=== PATIENT | male | born 1975 | race Caucasian/White ===

== ENCOUNTER 2016-07-10 08:41 | Emergency (ER) | payer OTHER ==
[2016-07-10] MEDS ORDERED: TORAdol 30 mg Injection IM ONE (09:12)
[2016-07-10] MEDS ORDERED: Vistaril 50 MG/ML IM ONE ×2 (09:13→09:17)
[2016-07-10] MEDS ORDERED: TORAdol 30 mg Injection ONE (09:16)
--- NOTE | 2016-07-10 09:18 | ERPHSYRPT ---
- History of Present Illness Time Seen by Provider: 07/10/16 09:04 Source: patient Patient Subjective Stated Complaint: pt states that he has recently been taken of his pain medication due to insurance change for his chronic back pain. scheduled to see pain clinic next month. pt is in pain lower back. has not been sleeping well. able to ambutlate intot the er with no assitance. states that his left leg is going numb as well. Triage Nursing Assessment: alert and oriented. pink warm and dry. afebrile. able to ambulate. stong pedal pulses. full rom in bilat legs. scar on lower back from 2016 back surgery. no obvious injuries. numbness that is described as tingling in leg leg with full sensation and states this is nothing new and sees and neurologist for this. Physician History: CC: back pain hx: 40 y/o patient has hx of chronic back pain s/p surgery. He was seeing Dr Coreas but medicaid changed to Dr Yong Munoz. He has been out of percocet for a few weeks. Dr Munoz gave him flexeril but it has not helped him sleep. He has chronic numbness in the left hand and left leg. No fever. No hx of CA. No urinary complaints. No fall or injury. He is scheduled to see pain specialist thru Dr Munoz and to see Dr Rai thru Dr Agarwal. Back Pain Location: lumbar spine Severity of Pain-Max: severe Severity of Pain-Current: severe Allergies/Adverse Reactions: phenobarbital Allergy (Verified 07/10/16 09:02) states hes had seizures Home Medications: Amphet Asp/Amphet/D-Amphet [Adderall 30 mg Tablet] 30 mg PO DAILY 07/10/16 [ History] Cyclobenzaprine HCl [Flexeril] 5 mg PO BID 07/10/16 [History] Oxycodone HCl/Acetaminophen [Percocet 7.5-325 mg Tablet] 1 each PO BID 07/10/16 [History] Hx Tetanus, Diphtheria Vaccination/Date Given: Yes Hx Influenza Vaccination/Date Given: Yes Hx Pneumococcal Vaccination/Date Given: No Immunizations Up to Date: Yes - Review of Systems Constitutional: No Fever, No Chills Eyes: No Symptoms Ears, Nose, & Throat: No Symptoms Respiratory: No Cough, No Dyspnea Cardiac: No Chest Pain Abdominal/Gastrointestinal: No Abdominal Pain Genitourinary Symptoms: No Dysuria, No Incontinence Musculoskeletal: Back Pain Skin: No Rash Neurological: No Headache All Other Systems: Reviewed and Negative - Past Medical History Pertinent Past Medical History: Yes Neurological History: No Pertinent History ENT History: No Pertinent History Cardiac History: No Pertinent History Respiratory History: No Pertinent History Endocrine Medical History: No Pertinent History Musculoskeletal History: No Pertinent History GI Medical History: No Pertinent History History: No Pertinent History Psycho-Social History: Anxiety, Depression Male Reproductive Disorders: No Pertinent History Other Medical History: chronic back pain - Past Surgical History Past Surgical History: Yes Neuro Surgical History: No Pertinent History Cardiac: No Pertinent History Respiratory: No Pertinent History Gastrointestinal: No Pertinent History Musculoskeletal: Orthopedic Surgery Male Surgical History: No Pertinent History Other Surgical History: skin grafts, right ankle, lower back - Social History Smoking Status: Light tobacco smoker How long have you smoked: 1O YEARS Exposure to second hand smoke: No Drug Use: none Patient Lives Alone: No - Nursing Vital Signs Temperature: 97.7 F Temperature Source: Oral Pulse Rate: 78 Respiratory Rate: 16 Pain Intensity: 9 - Physical Exam General Appearance: alert Eye Exam: PERRL/EOMI Ears, Nose, Throat Exam: normal ENT inspection, moist mucous membranes Neck Exam: normal inspection, non-tender, supple Respiratory Exam: normal breath sounds, lungs clear Cardiovascular Exam: regular rate/rhythm Gastrointestinal Exam: soft, No tenderness, No distention, No mass, No guarding Extremity Exam: normal range of motion, hunter (healed scars leg) Neurologic Exam: alert, oriented x 3, cooperative, 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 Already scheduled to see pain specialist and PMR. Advised ER can not refill percocet or opioids. INSPECT reviewed. Will Rx motrin and vistaril. Advised stop flexeril. Counseled pt/family regarding: diagnosis, need for follow-up, rad results - Departure Time of Disposition: 09:17 Departure Disposition: Home Clinical Impression: Chronic back pain Qualifiers: Back pain location: low back pain Back pain laterality: bilateral Sciatica presence: with sciatica Sciatica laterality: sciatica of left side Qualified Code(s): M54.42 - Lumbago with sciatica, left side; G89.29 - Other chronic pain Condition: Stable Critical Care Time: No Referrals: EMERSON MUNOZ [Primary Care Provider] - Instructions: Low Back Pain Additional Instructions: BACK INJURY 1. May apply moist heat frequently for relief of pain. Take care not to burn the skin. Do not use heat for more than 30 minutes at a time. 2. Try to sleep on a firm bed, flat on your back. 3. If no improvement is noticed in 2-3 days, follow up with your family physician. 4. If you notice any numbness, tingling, weakness, or problems with your bowel or bladder, you should call your family physician or return to the emergency department. Stop flexeril. Rx motrin. Rx hydrxyzine. Prescriptions: Hydroxyzine HCl 1 tab PO Q6H PRN PRN #24 tablet PRN Reason: rash,rest Ibuprofen 1 tab PO Q6H PRN PRN #24 tablet PRN Reason: pain
[2016-07-10 09:42] VITALS: BP 140/90; PULSE 67; O2SAT 97
== END 2016-07-10 09:43 | disposition home or self-care (01) ==
LOC: ED 08:41
DX: M54.42 Lumbago with sciatica, left side (principal); R20.0 Anesthesia of skin; Z79.891 Long term (current) use of opiate analgesic
CPT/HCPCS: 96372; 99283; 99284; J1885; J3410

== ENCOUNTER 2016-12-19 01:07 | Emergency (ER) | payer OTHER, SELFPAY ==
[2016-12-19] MEDS ORDERED: Nitrostat 0.4 MG (ED) SL ONE ×2 (01:37→01:43)
[2016-12-19] MEDS ORDERED: BABY ASPIRIN 81 MG CHEW PO ONE (01:37)
[2016-12-19] MEDS ORDERED: Sodium Chloride 0.9% 1000 ML 1,000 ML ONE (01:43)
[2016-12-19] MEDS ORDERED: BABY ASPIRIN 81 MG CHEW ONE (01:43)
[2016-12-19 01:44] LABS: Mean Cell Volume 90.3 fl (78-100); Mean Corpuscular Hemoglobin 30.2 pg (26-32); Mean Platelet Volume 10.1 fl (6-9.5); Platelet Count 223 K/mm3 (150-450); Red Blood Count 4.73 M/mm3 (4.1-5.6); Red Cell Distribution Width 12.8 % (11.5-14.0); White Blood Count 7.4 K/mm3 (4.0-10.5)
[2016-12-19] MEDS ORDERED: Sodium Chloride 0.9% 1000 ML 1,000 ML IV SCH (01:45)
[2016-12-19 01:47] LABS: INR 0.83 (0.8-3.0); PROTIME 9.4 SECONDS (8.83-12.87)
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
[2016-12-19 02:02] LABS: ALBUMIN 4.1 g/dL (3.4-5.0); ALKALINE PHOSPHATASE 59 U/L (46-116); ANION GAP 13.9 MEQ/L (5-15); BLOOD UREA NITROGEN 16 mg/dL (9-20); CHLORIDE 104 mEq/L (98-107); Carbon Dioxide 29.6 mEq/L (21-32); Glucose 91 MG/DL (70-110); Potassium 3.9 mEq/L (3.5-5.1); SGOT/AST 44 U/L (15-37); SGPT/ALT 119 U/L (12-78); SODIUM 144 mEq/L (136-145); Total Protein 6.7 gm/dL (6.4-8.2)
[2016-12-19 02:23] LABS: Basophil 3 % (0.0-1.0); Eosinophil 1 % (0.00-3.0); Total Cells Counted 100
[2016-12-19] MEDS ORDERED: Heparin 5000 UNITS/0.5 ML (HIGH RISK MED) IV ONE (02:23)
[2016-12-19 02:24] LABS: Platelet Estimate NORMAL (NORMAL)
[2016-12-19] MEDS ORDERED: Heparin 5000 UNITS/0.5 ML (HIGH RISK MED) ONE (02:28)
[2016-12-19] MEDS ORDERED: LIPITOR 40MG PO STA (02:28)
[2016-12-19] MEDS ORDERED: PLAVIX 75 MG Tablet PO ONE (02:28)
[2016-12-19] MEDS ORDERED: Heparin 25,000 units/D5W 250ML PREMIX 25,000 UNITS/250 ML BAG IV SCH (02:30)
[2016-12-19] MEDS ORDERED: LIPITOR 40MG ONE (02:36)
[2016-12-19] MEDS ORDERED: NITRO-BID 2% UD PACKETS TOP ONE (02:36)
[2016-12-19] MEDS ORDERED: PLAVIX 75 MG Tablet ONE (02:36)
[2016-12-19] MEDS ORDERED: NITRO-BID 2% UD PACKETS ONE (02:38)
[2016-12-19 03:07] VITALS: BP 132/76; PULSE 72
[2016-12-19 03:12] VITALS: O2SAT 97
[2016-12-19] MEDS ORDERED: MORPHINE SULFATE 10 MG/ML IV ONE (03:29)
[2016-12-19] MEDS ORDERED: Zofran 4 MG/2 ML VIAL IV ONE (03:29)
[2016-12-19] MEDS ORDERED: MORPHINE SULFATE 4 MG INJ ONE (03:32)
[2016-12-19] MEDS ORDERED: Zofran 4 MG/2 ML VIAL ONE (03:34)
--- NOTE | 2016-12-19 09:12 | XRAY ---
Indication: Chest pain. Comparison: January 15, 2013. Portable chest again demonstrates left base subsegmental atelectasis/scarring. Remaining heart and lungs normal. Bony thorax intact again with old left clavicle fracture.
== END 2016-12-19 03:50 | disposition short-term general hospital (02) ==
LOC: ED 01:07
DX: I21.4 Non-ST elevation (NSTEMI) myocardial infarction (principal); R07.89 Other chest pain; Z79.899 Other long term (current) drug therapy; S80.812A Abrasion, left lower leg, initial encounter
CPT/HCPCS: 36000; 36415; 71010; 80053; 80307; 83880; 84484; 85025; 85379; 85610; 93005; 93041; 96360; 96361; 96374; 96375; 99285; J1644; J2270; J2405; A9270-GY